=== PATIENT | female | born 1985 | race Caucasian/White ===

== ENCOUNTER 2017-11-08 17:20 | Emergency (ER) | payer OTHER ==
[~2017-11-08] VITALS: Ht 172.7 cm; Wt 98.0 kg
[~2017-11-08 17:20] MED LIST: PRENATAL TABLE1 EAC1 PO; SYNTHROID150 MCG PO; SYNTHROID175 MCG PO
== END 2017-11-08 20:43 | disposition home or self-care (01) ==
LOC: ER 17:20
DX: J06.9 Acute upper respiratory infection, unspecified (principal); H66.92 Otitis media, unspecified, left ear

== ENCOUNTER → 2019-01-09 | Outpatient (CLI) | payer OTHER | END | disposition home or self-care (01) | LOC: OBS/DEL 18:35 | DX: O35.8XX0 Maternal care for other (suspected) fetal abnormality and damage, not applicable or unspecified (principal); Z34.83 Encounter for supervision of other normal pregnancy, third trimester ==

== ENCOUNTER 2019-01-20 11:45 | Inpatient (IN) | payer OTHER ==
[~2019-01-20] VITALS: Ht 172.7 cm; Wt 102.1 kg
[2019-01-20] MEDS ORDERED: PRENATAL TABLE1 EAC1 PO (17:25)
[2019-01-20] MEDS ORDERED: SYNTHROID175 MCG PO (17:25)
== END 2019-01-23 13:54 | disposition home or self-care (01) | DRG 806 ==
LOC: SURG-SUITE 16:58 → LDR 16:58 → SURG-SUITE 01-21 20:42 → OB/GYN 01-28 11:45
PROVIDERS: ADMIT Obstetrics & Gynecology
PROC: 4A1HXCZ Monitoring of Products of Conception, Cardiac Rate, External Approach (ICD-10-PCS; 2019-01-20)
PROC: 10E0XZZ Delivery of Products of Conception, External Approach (ICD-10-PCS; principal; 2019-01-21)
PROC: 0UQGXZZ Repair Vagina, External Approach (ICD-10-PCS; 2019-01-21)
PROC: 10907ZC Drainage of Amniotic Fluid, Therapeutic from Products of Conception, Via Natural or Artificial Opening (ICD-10-PCS; 2019-01-21)
PROC: 3E0P7VZ Introduction of Hormone into Female Reproductive, Via Natural or Artificial Opening (ICD-10-PCS; 2019-01-21)
PROC: 3E033VJ Introduction of Other Hormone into Peripheral Vein, Percutaneous Approach (ICD-10-PCS; 2019-01-21)
DX: O71.4 Obstetric high vaginal laceration alone (principal); O41.03X0 Oligohydramnios, third trimester, not applicable or unspecified; Z37.0 Single live birth; Z3A.39 39 weeks gestation of pregnancy